=== PATIENT | female | born 1965 | race African-American/Black ===

== ENCOUNTER 2017-05-28 19:47 | Emergency (ER) | payer SELFPAY ==
[~2017-05-28] VITALS: Ht 162.6 cm; Wt 90.7 kg
--- NOTE | 2017-05-28 19:58 | NUR ---
[facility] 86 FRMO HOME C/O NOSEBLEED X 30 MINS. PT AOX3 RR EVEN AND UNLABORED. NO SOB NOTED. NAD NOTED. NO NVD AT THIS TIME. PT GOWNED AND PLACED ON MONITOR. ORAL PATHOLOGIST DEGRASSE AT BEDSIDE FOR EVAL.
[2017-05-28] MEDS ORDERED: OXYMETAZOLINE HCL NASAL SPRAY 30 ML BOTTLE NS ONE ×2 (20:00→20:04)
[2017-05-28] MEDS ORDERED: HYDROCHLOROTHIAZIDE 25 MG TABLET PO ONE (20:00)
[2017-05-28] MEDS ORDERED: hydrALAZINE HCL IV 20 MG VIAL IV ONE (20:00)
[2017-05-28] MEDS ORDERED: hydrALAZINE HCL IV 20 MG VIAL ONE (20:04)
[2017-05-28] MEDS ORDERED: HYDROCHLOROTHIAZIDE 25 MG TABLET ONE (20:04)
[2017-05-28 20:13] LABS: BASOPHILS # (AUTO) 0.1 /CMM (0.0-0.2); BASOPHILS % (AUTO) 0.6 % (0.0-2.0); EOSINOPHILS # (AUTO) 0.4 /CMM (0.0-0.7); EOSINOPHILS % (AUTO) 2.9 % (0.0-6.0); HEMATOCRIT 32 % (33-45); HEMOGLOBIN 9.8 g/dL (11.5-14.8); LYMPHOCYTES # (AUTO) 3.1 /CMM (0.8-4.8); LYMPHOCYTES % (AUTO) 24.1 % (20.0-44.0); MEAN CORPUSCULAR HEMOGLOBIN 21 PG (26.0-33.0); MEAN CORPUSCULAR HGB CONC 31 g/dl (31.0-36.0); MEAN CORPUSCULAR VOLUME 68 fL (82-100); MONOCYTES # (AUTO) 0.7 /CMM (0.1-1.30); MONOCYTES % (AUTO) 5.8 % (2.0-12.0); NEUTROPHILS # (AUTO) 8.4 /CMM (1.8-8.9); NEUTROPHILS % (AUTO) 66.6 % (43.0-81.0); PLATELET COUNT (AUTO) 270 /CMM (150-450); RDW COEFFICIENT OF VARIATION 16.5 (11.5-15.0); RED BLOOD CELL COUNT(AUTO) 4.73 MIL/uL (4.0-5.2); WHITE BLOOD COUNT (AUTO) 12.7 K/uL (4.3-11.0)
[2017-05-28 20:35] LABS: CALCIUM, SERUM 9.2 mg/dL (8.5-10.1); CREATININE 0.9 mg/dL (0.6-1.3); POTASSIUM 3.2 mmol/L (3.5-5.1)
[2017-05-28 20:42] LABS: INR 0.9 (0.87-1.13); PROTHROMBIN TIME 9.4 SECS (9.5-12.7)
[2017-05-28] MEDS ORDERED: ACETAMINOPHEN ES 500 MG TABLET ONE (21:07)
[2017-05-28] MEDS ORDERED: POTASSIUM CHLORIDE 20 MEQ TAB.PRT.SR PO ONE ×2 (21:30→21:46)
[2017-05-28] MEDS ORDERED: ACETAMINOPHEN ES 500 MG TABLET PO ONE (21:30)
--- NOTE | 2017-05-28 21:40 | NUR ---
NOSE BLEED HAS STOPPED. COLE SALGADO MADE AWARE
--- NOTE | 2017-05-28 22:10 | NUR ---
PT PASSED ROAD TEST.
[2017-05-28 22:17] VITALS: BP 158/78
--- NOTE | 2017-05-28 22:17 | NUR ---
IV removed. Catheter intact and site benign. Pressure and 4x4 applied to site. No bleeding noted. Patient discharged to home in stable condition. Written and verbal after care instructions given. Patient verbalizes understanding of instruction. ambulatory with a steady gait
== END 2017-05-28 22:18 | disposition home or self-care (01) ==
LOC: ER 19:48
DX: R04.0 Epistaxis (principal); D64.9 Anemia, unspecified; I10 Essential (primary) hypertension; E87.6 Hypokalemia; E16.2 Hypoglycemia, unspecified; Z91.19 Patient's noncompliance with other medical treatment and regimen
CPT/HCPCS: 36415; 80048; 85025; 85610; 96374; 99284; A4606; J0360; Z7610

== ENCOUNTER 2025-03-11 19:07 | Inpatient (IN) | payer MEDICAID ==
[~2025-03-11] VITALS: Ht 167.6 cm; Wt 89.4 kg
[2025-03-11] MEDS: VANCOMYCIN 1 GM in IV D5W 250 ML IV ONE (19:30)
[2025-03-11] MEDS ORDERED: ONDANSETRON HCL/PF 4 MG/2 ML VIAL ONE (19:57)
[2025-03-11] MEDS ORDERED: VANCOMYCIN 1 GM /D5W 250 ML PB IV ONE (19:57)
[2025-03-11] MEDS ORDERED: CEFEPIME 1 GM VIAL ONE (19:57)
[2025-03-11] MEDS ORDERED: MORPHINE SULFATE INJ 4 MG/ML DISP.SYRIN ONE (19:58)
[2025-03-11] MEDS: MORPHINE SULFATE INJ 2 MG/ML DISP.SYRIN IV ONE (19:59)
[2025-03-11] MEDS: CEFEPIME 1 GM in IV D5W 50 ML IV ONE (19:59)
[2025-03-11] MEDS: IV NS 0.9% 1,000 ML BAG IV ONE (19:59)
[2025-03-11] MEDS: ONDANSETRON HCL/PF 4 MG/2 ML VIAL IVP ONE (19:59)
[2025-03-11 20:07] LABS: PLATELET COUNT (AUTO) 279 K/uL (150-450); RED BLOOD CELL COUNT(AUTO) 5.06 MIL/uL (4.0-5.2); RED CELL DISTRIBUTION WIDTH 12.7 % (11.5-15.0); WHITE BLOOD COUNT (AUTO) 19.3 K/uL (4.3-11.0)
[2025-03-11 20:20] LABS: ASPARTATE AMINOTRANSFERASE 19.0 U/L (15-37); CALCIUM, SERUM 9.5 mg/dL (8.5-10.1); CREATININE 1.2 mg/dL (0.6-1.3); SODIUM SERUM 142.0 mmol/L (136-145); TOTAL PROTEIN, SERUM 8.1 g/dL (6.4-8.2); UREA NITROGEN, BLOOD 15.0 mg/dL (7-18)
[2025-03-11 20:23] LABS: LACTIC ACID 1.7 mmol/L (0.4-2.0)
[2025-03-11] MEDS ORDERED: DOSING PER PHARMACY-CEFEPIME IVPB XX PRN (20:30)
[2025-03-11] MEDS ORDERED: DOSING PER PHARMACY-VANCOMYCIN IV XX PRN (20:30)
[2025-03-11] MEDS ORDERED: MAG HYDROX/AL HYDROX/SIMETH 30 ML UDC PO PRN (20:30)
[2025-03-11] MEDS ORDERED: TEMAZEPAM 15 MG CAPSULE PO PRN (20:30)
[2025-03-11] MEDS ORDERED: DEXTROSE 50%-WATER 50 ML DISP.SYRIN IV PRN (20:30)
[2025-03-11] MEDS ORDERED: MAGNESIUM HYDROXIDE 30 ML UDC PO PRN (20:30)
[2025-03-11] MEDS ORDERED: Z GUARD REMEDY 4 OZ OINT TP PRN (20:30)
[2025-03-11 20:35] LABS: INR 1.01 (0.91-1.10)
[2025-03-11] MEDS ORDERED: POTASSIUM CL. PREMIX PERIPHER. 100 ML ONE (20:53)
[2025-03-11] MEDS: POTASSIUM CL. PREMIX PERIPHER. 50 ML IV SCH (20:53)
[2025-03-11] MEDS ORDERED: Magnesium 1GM/D5W 100ML PREMIX 100 ML IV ONE (20:54)
[2025-03-11] MEDS: Magnesium 1GM/D5W 100ML PREMIX 100 ML IV SCH (20:55)
[2025-03-11 21:00] VITALS: BP_SYST 166; BP_DIAS 68; BP_DIAS 98; TEMP 98.1; O2SAT 96
[2025-03-11] MEDS: ENOXAPARIN SODIUM 40 MG/0.4 ML DISP.SYRIN SQ SCH (22:00)
[2025-03-11] MEDS: POTASSIUM CHLORIDE 20 MEQ TAB.PRT.SR PO ONE ×2 (22:25→23:59)
[2025-03-11] MEDS: BLOOD SUGAR DIAGNOSTIC 1 EACH STRIP IN SCH (22:34)
[2025-03-11] MEDS: INSULIN REGULAR, HUMAN 100 UNIT/ML 3 ML VIAL SQ PRN (22:37)
[2025-03-11] MEDS: VANCOMYCIN 500 MG in IV D5W 100ml IV ONE (22:39)
[2025-03-11 23:00] VITALS: BP 190/110
[2025-03-12] MEDS: hydrALAZINE HCL IV 20 MG VIAL IV PRN (00:55)
[2025-03-12 01:30] VITALS: BP 156/76
[2025-03-12 06:01] LABS: PLATELET COUNT (AUTO) 255 K/uL (150-450); RED BLOOD CELL COUNT(AUTO) 4.61 MIL/uL (4.0-5.2); RED CELL DISTRIBUTION WIDTH 12.9 % (11.5-15.0); WHITE BLOOD COUNT (AUTO) 16.0 K/uL (4.3-11.0)
[2025-03-12 06:17] LABS: CALCIUM, SERUM 8.6 mg/dL (8.5-10.1); CREATININE 1.0 mg/dL (0.6-1.3); SODIUM SERUM 143.0 mmol/L (136-145); UREA NITROGEN, BLOOD 10.0 mg/dL (7-18)
[2025-03-12 06:18] LABS: PHOSPHORUS 2.7 mg/dL (2.5-4.9)
[2025-03-12] MEDS: PANTOPRAZOLE 40 MG TABLET.DR PO SCH (07:56)
[2025-03-12 08:00] VITALS: BP 172/84; TEMP 98.1; O2SAT 99
[2025-03-12] MEDS: CEFEPIME 2 GM in IV D5W 100 ML IV SCH (08:11)
[2025-03-12] MEDS ORDERED: HYDR25TA4 PO (08:44)
[2025-03-12] MEDS: VANCOMYCIN 750 MG in IV D5W 250 ML IV SCH (09:02)
[2025-03-12 16:00] VITALS: BP 167/89; TEMP 98.8; O2SAT 96
[2025-03-12] MEDS: HYDROCODONE/APAP 10/325MG TABLET PO PRN (17:41)
[2025-03-12 20:00] VITALS: BP 174/97; TEMP 98.2; O2SAT 97
[2025-03-12 23:00] VITALS: BP 153/79
[2025-03-13] VITALS: BP 153/79; TEMP 98.1; O2SAT 97
[2025-03-13 08:00] VITALS: BP 186/86; TEMP 98.1; O2SAT 98
[2025-03-13] MEDS: DAKINS QUARTER STRENGTH (0.125%) 480 ML BOTTLE TOP SCH (08:17)
[2025-03-13 08:31] LABS: PLATELET COUNT (AUTO) 250 K/uL (150-450); RED BLOOD CELL COUNT(AUTO) 4.77 MIL/uL (4.0-5.2); RED CELL DISTRIBUTION WIDTH 12.9 % (11.5-15.0); WHITE BLOOD COUNT (AUTO) 12.8 K/uL (4.3-11.0)
[2025-03-13 08:46] LABS: CALCIUM, SERUM 8.8 mg/dL (8.5-10.1); CREATININE 0.9 mg/dL (0.6-1.3); PHOSPHORUS 2.8 mg/dL (2.5-4.9); SODIUM SERUM 140.0 mmol/L (136-145); UREA NITROGEN, BLOOD 11.0 mg/dL (7-18)
[2025-03-13 10:06] VITALS: BP 167/82
[2025-03-13] MEDS: POTASSIUM CHLORIDE 20 MEQ TAB.PRT.SR PO SCH (10:25)
[2025-03-13] MEDS: ACETAMINOPHEN 325 MG TABLET PO PRN (14:24)
[2025-03-13 16:00] VITALS: BP 147/97; TEMP 97.5; O2SAT 100
[2025-03-13] MEDS: METFORMIN 500 MG TABLET PO SCH (16:49)
[2025-03-13 20:00] VITALS: BP 164/92; TEMP 98.4; O2SAT 100
[2025-03-13] MEDS: HYDROCODONE/APAP 5/325MG TABLET PO PRN (23:48)
[2025-03-14 06:10] LABS: CALCIUM, SERUM 9.1 mg/dL (8.5-10.1); CREATININE 1.0 mg/dL (0.6-1.3); PHOSPHORUS 3.0 mg/dL (2.5-4.9); SODIUM SERUM 137.0 mmol/L (136-145); UREA NITROGEN, BLOOD 10.0 mg/dL (7-18)
[2025-03-14 07:31] LABS: PLATELET COUNT (AUTO) 232 K/uL (150-450); RED BLOOD CELL COUNT(AUTO) 5.10 MIL/uL (4.0-5.2); RED CELL DISTRIBUTION WIDTH 13.1 % (11.5-15.0); WHITE BLOOD COUNT (AUTO) 11.8 K/uL (4.3-11.0)
[2025-03-14] MEDS: HYDROCHLOROTHIAZIDE 25 MG TABLET PO SCH (08:02)
[2025-03-14 08:43] VITALS: BP 184/114; TEMP 98.4; O2SAT 95
[2025-03-14 09:00] VITALS: BP 151/104
[2025-03-14 15:48] VITALS: BP 171/94; TEMP 98.1; O2SAT 100
[2025-03-14 17:15] VITALS: BP 190/102
[2025-03-14 17:45] VITALS: BP 160/98
[2025-03-14 20:00] VITALS: BP 165/100; TEMP 98.4; O2SAT 98
[2025-03-15 08:00] VITALS: BP 208/108; TEMP 97.9; O2SAT 98
[2025-03-15 08:48] VITALS: BP 160/84
[2025-03-15] MEDS: ONDANSETRON HCL/PF 4 MG/2 ML VIAL IVP PRN (09:55)
[2025-03-15 14:20] LABS: PLATELET COUNT (AUTO) 257 K/uL (150-450); RED BLOOD CELL COUNT(AUTO) 5.00 MIL/uL (4.0-5.2); RED CELL DISTRIBUTION WIDTH 13.0 % (11.5-15.0); WHITE BLOOD COUNT (AUTO) 15.2 K/uL (4.3-11.0)
[2025-03-15 14:35] LABS: CALCIUM, SERUM 9.1 mg/dL (8.5-10.1); CREATININE 1.1 mg/dL (0.6-1.3); PHOSPHORUS 3.1 mg/dL (2.5-4.9); SODIUM SERUM 135.0 mmol/L (136-145); UREA NITROGEN, BLOOD 10.0 mg/dL (7-18)
[2025-03-15 16:00] VITALS: BP 161/91; TEMP 99.1; O2SAT 97
[2025-03-15 16:49] VITALS: BP 155/95
[2025-03-15] MEDS: CLOTRIMAZOLE 1% 15 GM TUBE TP SCH (17:00)
[2025-03-15 20:00] VITALS: BP 144/79; TEMP 98.4; O2SAT 98
[2025-03-16] VITALS (7 sets, daily range): BP systolic 147–187; BP diastolic 83–98; TEMP 98.2–98.4; O2SAT 94–97
[2025-03-16 07:32] LABS: PLATELET COUNT (AUTO) 180 K/uL (150-450); RED BLOOD CELL COUNT(AUTO) 4.92 MIL/uL (4.0-5.2); RED CELL DISTRIBUTION WIDTH 13.0 % (11.5-15.0); WHITE BLOOD COUNT (AUTO) 11.9 K/uL (4.3-11.0)
[2025-03-16 08:20] LABS: CALCIUM, SERUM 8.8 mg/dL (8.5-10.1); CREATININE 1.0 mg/dL (0.6-1.3); SODIUM SERUM 137.0 mmol/L (136-145); UREA NITROGEN, BLOOD 12.0 mg/dL (7-18)
[2025-03-16 08:30] LABS: ASPARTATE AMINOTRANSFERASE 23.0 U/L (15-37); TOTAL PROTEIN, SERUM 6.7 g/dL (6.4-8.2)
[2025-03-16] MEDS ORDERED: METF-440 PO (12:45)
[2025-03-16] MEDS ORDERED: SULF1TAB48 PO (12:45)
[2025-03-16] MEDS ORDERED: TRAM50TA2 PO (13:20)
[2025-03-16] MEDS: CLONIDINE HCL 0.1 MG TABLET PO PRN (14:59)
[2025-03-16] MEDS: CEFAZOLIN 2 GM in IV D5W 100 ML IV SCH (16:06)
[2025-03-17 06:17] LABS: PLATELET COUNT (AUTO) 246 K/uL (150-450); RED BLOOD CELL COUNT(AUTO) 4.57 MIL/uL (4.0-5.2); RED CELL DISTRIBUTION WIDTH 12.9 % (11.5-15.0); WHITE BLOOD COUNT (AUTO) 11.1 K/uL (4.3-11.0)
[2025-03-17 06:27] LABS: CALCIUM, SERUM 9.2 mg/dL (8.5-10.1); CREATININE 0.9 mg/dL (0.6-1.3); SODIUM SERUM 138.0 mmol/L (136-145); UREA NITROGEN, BLOOD 13.0 mg/dL (7-18)
[2025-03-17 08:00] VITALS: BP 177/100; TEMP 98.4; O2SAT 97
[2025-03-17] MEDS: LOSARTAN POTASSIUM 50 MG TABLET PO SCH (09:16)
[2025-03-17] MEDS: POTASSIUM CHLORIDE 20 MEQ TAB.PRT.SR PO SCH (10:22)
[2025-03-17] MEDS ORDERED: MECLIZINE HCL 25 MG TABLET PO PRN (13:00)
[2025-03-17 16:00] VITALS: TEMP 98.2; O2SAT 97
[2025-03-17 20:00] VITALS: BP 165/105; TEMP 98.5; O2SAT 97
[2025-03-18 06:42] LABS: CALCIUM, SERUM 9.1 mg/dL (8.5-10.1); CREATININE 0.9 mg/dL (0.6-1.3); PLATELET COUNT (AUTO) 249 K/uL (150-450); RED BLOOD CELL COUNT(AUTO) 4.98 MIL/uL (4.0-5.2); RED CELL DISTRIBUTION WIDTH 12.8 % (11.5-15.0); SODIUM SERUM 139.0 mmol/L (136-145); UREA NITROGEN, BLOOD 10.0 mg/dL (7-18); WHITE BLOOD COUNT (AUTO) 12.6 K/uL (4.3-11.0)
[2025-03-18 08:00] VITALS: BP 181/104; TEMP 97.7; O2SAT 97
[2025-03-18] MEDS: hydrALAZINE HCL IV 20 MG VIAL IV PRN (10:57)
[2025-03-18 11:06] VITALS: BP 157/81
[2025-03-18 12:40] VITALS: BP 145/92; TEMP 98.9; O2SAT 96
[2025-03-18 16:00] VITALS: BP 183/111; TEMP 99.1; O2SAT 98
[2025-03-18] MEDS: AMLODIPINE BESYLATE 5 MG TABLET PO SCH (18:13)
[2025-03-18 18:14] VITALS: BP 183/111
[2025-03-19 18:31] LABS: HIV-1/2 ANTIBODY NON REACTIVE (NONREACTIVE)
== END 2025-03-18 20:25 | disposition home or self-care (01) | DRG 720 ==
LOC: ER 19:12 → MED 20:36
PROVIDERS: ADMIT Nurse Practitioner Acute Care; ATTEND Nurse Practitioner Family
PROC: 0H9MXZZ Drainage of Right Foot Skin, External Approach (ICD-10-PCS; principal; 2025-03-12)
DX: A41.9 Sepsis, unspecified organism (principal); L03.115 Cellulitis of right lower limb; L02.611 Cutaneous abscess of right foot; E66.9 Obesity, unspecified; E11.65 Type 2 diabetes mellitus with hyperglycemia; N17.9 Acute kidney failure, unspecified; E87.6 Hypokalemia; I10 Essential (primary) hypertension; Z68.31 Body mass index [BMI] 31.0-31.9, adult; Z71.3 Dietary counseling and surveillance
CPT/HCPCS: 36415; 71045-TC; 73630-TC; 80048-TC; 80076-TC; 80202-TC; 82962-TC; 83605-TC; 83735-TC; 84100-TC; 85025-TC; 85730-TC; 86803; 87040-TC; 87070-TC; 87081-TC; 87806; 97110-TC; 97116-TC; 97530-TC; 97535-TC; A4223; A6403; G0378; J0360; J0690; J0692; J1650; J1815; J2270; J2405; J3373; J3374; J3475; J3480; J7030; J7050; J7060